=== PATIENT | female | born 1945 | race Caucasian/White ===

== ENCOUNTER → 2019-03-15 | Outpatient (REF) | payer MEDICARE ==
[2019-03-15 14:02] LABS: APPEARANCE, URINE CLEAR (CLEAR); BACTERIA, URINE AUTO 1+ (NEGATIVE); BILIRUBIN, URINE AUTO NEGATIVE (NEGATIVE); BLOOD, URINE BLOOD 1+ (NEGATIVE); COLOR, URINE YELLOW (YELLOW); GLUCOSE, URINE (UA) AUTO NEGATIVE (NEGATIVE); KETONE, URINE AUTO NEGATIVE (NEGATIVE); LEUKOCYTE ESTERASE, URINE AUTO NEGATIVE (NEGATIVE); MUCUS, URINE SMALL (NEGATIVE); NITRITE, URINE AUTO NEGATIVE (NEGATIVE); PROTEIN, URINE AUTO 1+ mg/dL (NEGATIVE); RBC, URINE AUTO 0 /HPF (0-3); SPECIFIC GRAVITY URINE AUTO 1.015 (1.002-1.035); SQUAMOUS EPITHELIAL CELL UR AU 1 /HPF (0-6); UROBILINOGEN, URINE AUTO 0.2 mg/dL (0.0-2.0); WBC, URINE AUTO 0 /HPF (0-3)
== END ==
LOC: M SMT 13:03
PROVIDERS: ATTEND Urology
DX: N28.89 Other specified disorders of kidney and ureter (principal)
CPT/HCPCS: 81001; 87086; G0463

== ENCOUNTER → 2019-04-03 | Outpatient (CLI) | payer MEDICARE ==
[~2019-04-03] MED LIST: ISOVUE-370 76% 100ML VIAL (Q9967) As Ordered ONE
--- NOTE | 2019-04-03 13:24 | REP ---
CT of the abdomen, pelvis not included for evaluation of left renal mass: There are no comparison studies. Multiphasic imaging is performed. Scanning is initially performed without IV contrast. After IV contrast scanning is initially performed during the arterial phase of enhancement and repeated during the portal venous phase and again during the delayed equilibrium phase. There is a mass arising from the upper pole of the left kidney measuring up to 5.4 cm in diameter has a mottled appearance containing zones of enhancement as well as a zones of non enhance. There is no evidence of intraluminal filling defect in the left renal vein by CT. There is no hydronephrosis. There are no renal calculi. There is no perinephric stranding. The left kidney is otherwise unremarkable. The right kidney is unremarkable. There is a right adrenal [address] density of this nodule on the images without IV contrast is 22.3 HU. This measurement higher than expected for a benign adenoma, therefore, left adrenal malignancy is also suspected. The right adrenal is unremarkable. The visualized lung sutherland demonstrate dependent atelectasis but otherwise unremarkable. The hepatic parenchyma is homogeneous. There are surgical clips in the gallbladder fossa. The pancreas and spleen are normal size and unremarkable. The abdominal aorta is unremarkable. There is no periaortic/retroperitoneal lymph node enlargement. The visualized mesentery and bowel are unremarkable. The skeletal structures demonstrate small hyper densities in the T11 and T12 vertebral bodies, nonspecific, bone islands versus blastic metastases. There is advanced degenerative disc disease at the L5 S1 disc space. Impression: Left renal upper pole mass as described. Right adrenal nodule as described. No adenopathy or ascites. Hyper densities in the T11-9 T12 vertebral bodies, nonspecific, bone islands versus blastic metastases. Electronically Signed by Trent Hoff MD 04/03/2019 01:16 P
== END ==
LOC: M RAD 10:11
PROVIDERS: ATTEND Nurse Practitioner Family
DX: N28.89 Other specified disorders of kidney and ureter (principal)
CPT/HCPCS: 74170; Q9967

== ENCOUNTER 2019-04-17 07:30 | Inpatient (IN) | payer MEDICARE ==
[~2019-04-17] VITALS: Ht 180.3 cm; Wt 64.0 kg
[~2019-04-17 07:30] MED LIST changes: +AMLO10TA5 PO; +ASPI81TA85 PO; +B COTAB3 PO; +BISO10TA10 PO; +CLOP75TA2 PO; +D3 S20002 PO; -ISOVUE-370 76% 100ML VIAL (Q9967) As Ordered ONE; +LANTINJ4 SC; +LISI20TA20 PO; +NITR4TASL SL; +NOVOINJ SC; +VENL37.52 PO; +VITA-158 PO
[2019-05-24] MEDS ORDERED: LR 1,000 ML IV ONE (06:00)
[2019-05-24] MEDS ORDERED: BUPIVACAINE HCL 0.25% 30 ML VIAL As Ordered ONE (06:37)
[2019-05-24] MEDS ORDERED: LIDOCAINE 1% SDV INJ 30 ML VIAL As Ordered ONE (06:37)
[2019-05-24] MEDS ORDERED: ceFAZolin 2 GM/D5W 50 ML IV BAG (J0690 PER 500MG) As Ordered ONE (06:57)
[2019-05-24] MEDS ORDERED: PROPOFOL 200 MG/20 ML VIAL As Ordered ONE (07:18)
[2019-05-24] MEDS ORDERED: ROCURONIUM BROMIDE 50 MG/5 ML VIAL As Ordered ONE ×2 (07:18→08:30)
[2019-05-24] MEDS ORDERED: fentaNYL 250 MCG/5 ML INJECTION (J3010) As Ordered ONE (07:18)
[2019-05-24] MEDS ORDERED: LIDOCAINE 2% INJ 100 MG/5 ML SDV (FOR ANES.) As Ordered ONE (07:18)
[2019-05-24] MEDS ORDERED: MIDAZOLAM INJ 2 MG/2 ML VIAL (J2250) As Ordered ONE (07:19)
[2019-05-24] MEDS ORDERED: PERCOCET 5MG/325MG TAB PO PRN ×3 (07:45→13:30)
[2019-05-24] MEDS ORDERED: DEXTROSE 50% 50 ML SYRINGE IV PRN (07:45)
[2019-05-24] MEDS ORDERED: GLUCOSE 4 GM CHEW TABLET PO PRN (07:45)
[2019-05-24] MEDS ORDERED: GLUCAGON FOR INJ 1 MG VIAL (J1610) SC PRN (07:45)
[2019-05-24] MEDS ORDERED: MORPHINE 4 MG/ML 1ML VIAL/SYRINGE (J2270) IV PRN (07:45)
[2019-05-24] MEDS ORDERED: FILTER 1.2 MICRON (ADULT TPN/MANNITOL/REMICADE) XX ONE (08:37)
[2019-05-24] MEDS ORDERED: MANNITOL 25% 12.5 GM/50 ML VIAL (J2150) As Ordered ONE (08:37)
[2019-05-24] MEDS ORDERED: KETOROLAC 60 MG/2 ML VIAL (J1885) As Ordered ONE (09:31)
[2019-05-24] MEDS ORDERED: ONDANSETRON 4MG/2ML VIAL (J2405) As Ordered ONE (09:31)
[2019-05-24] MEDS ORDERED: METOCLOPRAMIDE INJ 10MG/2ML VIAL (J2765) As Ordered ONE (09:31)
[2019-05-24] MEDS ORDERED: dexameTHASONE 4 MG/ML 1ML VIAL (J1100) As Ordered ONE (09:31)
[2019-05-24] MEDS ORDERED: HYDROmorphone HCL 2 MG/ML 1ML VIAL (J1170) As Ordered ONE (09:32)
[2019-05-24] MEDS ORDERED: DESFLURANE 240 ML INHALANT As Ordered ONE (10:10)
[2019-05-24] MEDS: HumaLOG INSULIN (NovoLOG) PER UNIT SC SCH ×3 (12:00→21:00)
[2019-05-24] MEDS ORDERED: ACETAMINOPHEN 1000MG 100ML IV BTL (OFIRMEV) (J0131 PER 10MG) As Ordered ONE (12:46)
[2019-05-24] MEDS ORDERED: SUGAMMADEX SODIUM 500 MG/5 ML VIAL (BRIDION) As Ordered ONE (12:53)
[2019-05-24] MEDS ORDERED: LR 1,000 ML IV SCH (13:30)
[2019-05-24] MEDS ORDERED: ONDANSETRON 4MG/2ML VIAL (J2405) IV PRN (13:30)
[2019-05-24] MEDS ORDERED: METOCLOPRAMIDE INJ 10MG/2ML VIAL (J2765) IV PRN ×2 (13:30→22:00)
[2019-05-24] MEDS ORDERED: MEPERIDINE INJ 25 MG/ML VIAL (J2175) IV PRN (13:30)
[2019-05-24 13:41] LABS: HEMATOCRIT 29.5 % (36.0-47.0); HEMOGLOBIN 9.3 g/dl (12.0-15.5); MEAN CORPUSCULAR HEMOGLOBIN 29.4 pg (27.0-33.0); MEAN CORPUSCULAR HGB CONC 31.5 g/dl (32.0-36.5); MEAN CORPUSCULAR VOLUME 93.4 fl (80.0-96.0); PLATELET COUNT, AUTOMATED 239 10^3/uL (150-450); RED BLOOD COUNT 3.16 10^6/uL (4.00-5.40); WHITE BLOOD COUNT 12.6 10^3/uL (4.0-10.0)
[2019-05-24 14:12] LABS: CALCIUM LEVEL 8.9 MG/DL (8.8-10.2); CREATININE FOR GFR 1.55 MG/DL (0.55-1.30); GLOMERULAR FILTRATION RATE 34.7 (>39); POTASSIUM SERUM 4.2 MEQ/L (3.5-5.1)
--- NOTE | 2019-05-24 14:14 | ROOPDOC ---
[facility] Report Of Operation Report of Operation DATE OF PROCEDURE: 05/24/19 PREPROCEDURE DIAGNOSIS: Left renal neoplasm. POSTPROCEDURE DIAGNOSIS: Left renal neoplasm. PROCEDURE: Left robotic assisted laparoscopic partial nephrectomy with renal exploration and intraoperative ultrasonography for tumor mapping. SURGEON: Dorothea Gonzalez MD TONGSMAN: Hamida Garcia ANESTHESIA: General OPERATIVE INDICATIONS: This is a 73-year-old female who was found to have a 5.5cm enhancing upper pole left renal neoplasm, concerning for malignancy. She was brought to the operating room today for the above treatment. DESCRIPTION OF PROCEDURE: The patient was brought to the operating room where general anesthesia was induced. Prophylactic antibiotics were infused. A Hood catheter was placed into her bladder under sterile conditions. She was then placed in the right lateral decubitus position. All pressure points were appropriately padded and an axillary roll was placed. We then secured the patient to the table with tape. Her abdomen was then prepped and draped in the usual sterile fashion. Next, an 8mm incision was made in line with the 11th rib along the lateral border of the rectus. Pneumoperitoneum was achieved with a Veress needle. Next, an 8mm port was placed for the camera. At this point, the left robotic port was placed off the costal margin. Two right hand robotic ports were then placed with one between the anterior superior iliac spine and the umbilicus and the other one just caudal to the camera port. Last the 12 mm podiatrist assistant port was placed inferior and medial to the camera port. The robot was then docked. We then began our dissection by mobilizing the left colon medially. Any attachment between the spleen and the upper part of Gerota's fascia were released using electrocautery. At this point, we then located the left renal vein and just posterior to the vein was the left renal artery. Once we located the left renal artery, it was carefully dissected in preparation for future clamping. Once that was done, the kidney was then mobilized within Gerota's fascia. I had anesthesia administer 12.5 grams of Mannitol intravenously. On the upper pole of the kidney the tumor was identified. At this point, ultrasound was utilized to demarcate the margins of resection. After identifying the margins, we were then ready to clamp the kidney. At this point, the renal artery was clamped with 2 Bulldog clamps. The tumor was then resected using cold scissors. After completely resecting the tumor, it was placed to the side and we began to perform the renorrhaphy. We started with a #2-0 Vicryl stitch, to close any open vessels or openings in the collecting system. We then used an #0 Vicryl stitch to reapproximate the capsule. The stitches were cinched down using Weck clips. Once done, hemostasis appeared to be excellent. At this point, the clamps were taken off the renal artery and the warm ischemia time was 36 minutes. After taking the clamps off the renal artery, hemostasis still appeared to be excellent. I did administer some Polina over the renorrhaphy. At this point, the tumor was placed in an Endo Catch bag for future retrieval. Next, a Kiran-Carmona drain was advanced in through the lateral right hand robotic port skin site. After that was done, the robot was undocked. The drain was then secured to the skin using a #2-0 Ethilon stitch. The tumor was extracted with an Endo Catch bag through the podiatrist assistant port site after extending the skin. Once the tumor was removed, the fascia of this port site was closed with a running #0 Vicryl suture. Once this was done, I looked back in the abdomen with the camera and there was no bleeding. No intraabdominal contents were caught in the closure of the extraction site. Then all ports were thoroughly irrigated. We then closed the skin of all ports using #4-0 Monocryl subcuticular suture. Local anesthetic was applied. Dermabond was then applied to each incision marking the conclusion of the procedure. The patient then taken out of the right lateral decubitus position, awakened from anesthesia and transported to the recovery room in stable condition. Estimated blood loss: 75 mL. Complications: None. Specimens: Left renal neoplasm. Warm ischemia time: 36 minutes. Percent normal left kidney spared: approximately 80%. Plan: The patient will be admitted to the hospital postoperatively and will be likely discharged home within the next 2 to 3 days. DOROTHEA GONZALEZ MD May 24, 2019 14:14
[2019-05-24] MEDS: amLODIPine 10 MG TAB PO SCH ×2 (14:30→17:30)
[2019-05-24] MEDS: DOCUSATE SODIUM 100 MG CAP PO SCH ×2 (14:30→20:59)
[2019-05-24] MEDS: LISINOPRIL 20 MG TAB PO SCH ×2 (14:30→17:30)
[2019-05-24] MEDS: hydroCHLOROthiazide 25 MG TAB PO SCH ×2 (14:30→17:30)
[2019-05-24 14:38] VITALS: BP 158/65
[2019-05-24 15:05] VITALS: BP 145/63
[2019-05-24] MEDS: NS 1,000 ML IV SCH ×3 (15:10→23:34)
[2019-05-24 16:05] VITALS: BP 186/86
[2019-05-24] MEDS: ceFAZolin SOD 1 GM in D5W MINI-BAG PLUS 50 ML IV SCH ×2 (16:20→23:34)
[2019-05-24] MEDS: ONDANSETRON 4MG/2ML VIAL (J2405) IV PRN (16:20)
[2019-05-24 17:05] VITALS: BP 190/96
[2019-05-24 18:05] VITALS: BP 177/87
[2019-05-24 20:28] VITALS: BP 199/99
[2019-05-24] MEDS: ACETAMINOPHEN TAB 650MG DOSE (2X325MG) PO PRN (22:27)
[2019-05-24] MEDS ORDERED: FUROSEMIDE 20 MG/2 ML VIAL (J1940) IV ONE (23:00)
[2019-05-25] VITALS (7 sets, daily range): BP systolic 167–199; BP diastolic 74–98
[2019-05-25] MEDS: ACETAMINOPHEN TAB 650MG DOSE (2X325MG) PO PRN ×2 (06:09→21:59)
[2019-05-25 06:45] LABS: HEMATOCRIT 28.7 % (36.0-47.0); HEMOGLOBIN 9.2 g/dl (12.0-15.5); MEAN CORPUSCULAR HEMOGLOBIN 29.9 pg (27.0-33.0); MEAN CORPUSCULAR HGB CONC 32.1 g/dl (32.0-36.5); MEAN CORPUSCULAR VOLUME 93.2 fl (80.0-96.0); PLATELET COUNT, AUTOMATED 232 10^3/uL (150-450); RED BLOOD COUNT 3.08 10^6/uL (4.00-5.40)
[2019-05-25 07:06] LABS: CALCIUM LEVEL 8.9 MG/DL (8.8-10.2); CREATININE FOR GFR 1.94 MG/DL (0.55-1.30); GLOMERULAR FILTRATION RATE 26.8 (>39); POTASSIUM SERUM 3.8 MEQ/L (3.5-5.1)
--- NOTE | 2019-05-25 07:39 | IPNPDOC ---
Subjective Review oF Systems Chief Complaint The patient is a 73-year-old female admitted with a reason for visit of Renal Mass Left Upper Pole. Events since Last Encounter No acute events o/n. Pain controlled so far w/ tylenol. Patient had a lot of nausea yesterday, but this is improved this morning. No emesis. Tolerating cl ears. No f/c/ns. Objective Physical Examination General Exam: Alert, Cooperative, No Acute Distress ABDOMEN EXAM: Soft, Tenderness (mild), Other (incisions clean/dry/intact; JAYJAY draining serosanguinous fluid) Skin Exam: Nl turgor and temperature Neuro Exam: Normal Speech Psych Exam: Mental status NL, Mood NL Other physical findings catheter draining clear urine Vital Signs/I&O Vital Signs Date Time Temp Pulse Resp B/P (MAP) Pulse Ox O2 Delivery O2 Flow Rate FiO2 05/25/19 06:16 97.6 90 22 187/86 (119) 98 2.0 I&O- Last 24 Hours up to 6 AM 05/25/19 06:00 Intake Total 2795 ml Output Total 1385 ml Balance 1410 ml Laboratory Data Labs 24H Laboratory Tests 2 05/24/19 13:12: Nucleated Red Blood Cells % (auto) 0.0, Anion Gap 9, Glomerular Filtration Rate 34.7L, Blood Urea Nitrogen 22H, Creatinine 1.55H, Sodium Level 140, Potassium Level 4.2, Chloride Level 106, Carbon Dioxide Level 25, Calcium Level 8.9 05/24/19 13:47: Bedside Glucose (Misc Panel) 207H 05/24/19 16:17: Bedside Glucose (Misc Panel) 216H 05/24/19 21:14: Bedside Glucose (Misc Panel) 184H 05/25/19 06:12: Nucleated Red Blood Cells % (auto) 0.0, Anion Gap 7L, Glomerular Filtration Rate 26.8L, Blood Urea Nitrogen 28H, Creatinine 1.94H, Sodium Level 140, Potassium Level 3.8, Chloride Level 107, Carbon Dioxide Level 26, Calcium Level 8.9 CBC/BMP Laboratory Tests 05/24/19 13:12 Red Blood Count 3.16 L, Mean Corpuscular Volume 93.4, Mean Corpuscular Hemoglobin 29.4, Mean Corpuscular Hemoglobin Concent 31.5 L, Red Cell Distribution Width 14.6 H, Calcium Level 8.9 05/25/19 06:12 Red Blood Count 3.08 L, Mean Corpuscular Volume 93.2, Mean Corpuscular Hemoglobin 29.9, Mean Corpuscular Hemoglobin Concent 32.1, Red Cell Distribution Width 14.6 H, Calcium Level 8.9 FSBS Laboratory Tests Test 05/24/19 13:47 05/24/19 16:17 05/24/19 21:14 Range/Units Bedside Glucose (Misc Panel) 207 216 184 83-110 MG/DL Assessment/Plan Date Seen The patient was seen on 05/25/19. Patient Summary This is a 73 y/o F POD1 s/p left robotic partial nephrectomy. She is doing well. Hb is stable. Cr trended up to 1.9 this morning from 1.6 postop. Her UOP has been very good. Plan/VTE VTE Prophylaxis Ordered?: Yes VTE Exclusion Mechanical Proph: N/A:VTE Prophy Ordered Plan/Urinary Catheter Urinary Catheter: D/C Hood Plan - d/c Hood - decrease IVF - ultram prn pain - zofran/reglan prn nausea - cont home meds - SSI - strict I/Os - SCDs when in bed - ambulate - incentive spirometry - CLD -> advance as tolerated DOROTHEA GONZALEZ MD May 25, 2019 07:39
[2019-05-25] MEDS: HumaLOG INSULIN (NovoLOG) PER UNIT SC SCH ×4 (08:16→21:00)
[2019-05-25] MEDS: ASPIRIN 81 MG ENTERIC TAB PO SCH (08:16)
[2019-05-25] MEDS: BISOPROLOL FUMARATE 10 MG TAB PO SCH (08:17)
[2019-05-25] MEDS: amLODIPine 10 MG TAB PO SCH (08:17)
[2019-05-25] MEDS: LISINOPRIL 20 MG TAB PO SCH (08:17)
[2019-05-25] MEDS: hydroCHLOROthiazide 25 MG TAB PO SCH (08:17)
[2019-05-25] MEDS: traMADol 50 MG TAB PO PRN ×2 (08:18→17:20)
[2019-05-25] MEDS: DOCUSATE SODIUM 100 MG CAP PO SCH ×2 (08:18→21:59)
[2019-05-25] MEDS: NS 1,000 ML IV SCH (08:19)
[2019-05-25] MEDS ORDERED: ONDA4TAB5 PO (17:05)
[2019-05-25] MEDS ORDERED: TRAM50TA2 PO (17:05)
[2019-05-25] MEDS ORDERED: COLA100C5 PO (17:05)
[2019-05-25] MEDS: ONDANSETRON 4MG/2ML VIAL (J2405) IV PRN (17:20)
[2019-05-25] MEDS: VENLAFAXINE **XR** 37.5 MG CAPSULE PO SCH (21:59)
[2019-05-26 06:59] VITALS: BP 154/72
[2019-05-26] MEDS: DOCUSATE SODIUM 100 MG CAP PO SCH ×2 (08:33→20:58)
[2019-05-26] MEDS: ASPIRIN 81 MG ENTERIC TAB PO SCH (08:33)
[2019-05-26] MEDS: amLODIPine 10 MG TAB PO SCH (08:33)
[2019-05-26] MEDS: LISINOPRIL 20 MG TAB PO SCH (08:34)
[2019-05-26] MEDS: hydroCHLOROthiazide 25 MG TAB PO SCH (08:34)
[2019-05-26] MEDS: BISOPROLOL FUMARATE 10 MG TAB PO SCH (08:34)
[2019-05-26] MEDS: traMADol 50 MG TAB PO PRN ×4 (08:36→20:59)
[2019-05-26] MEDS: HumaLOG INSULIN (NovoLOG) PER UNIT SC SCH ×4 (08:39→20:57)
--- NOTE | 2019-05-26 10:01 | IPNPDOC ---
Date Seen The patient was seen on 05/26/19. Progress Note SUBJECTIVE: patient c/o left shoulder pain. Denies SOB, chest pain. Nursing reporting low o2 sat when OOB OBJECTIVE PHYSICAL EXAMINATION: VITAL SIGNS: Please see below. GENERAL: lying comfortable in bed RESPIRATORY: decreased BS bilaterally ABDOMINAL: soft mildly distended. wounds clean and dry. JAYJAY 50 cc EXTREMITIES: no calf swelling, neg Lauren's sign O2 sat in bed 95% on 1.5 L O2 LABORATORY DATA, IMAGING STUDIES, MICROBIOLOGY: Please see below. Labs pending, unable to draw blood this AM ASSESSMENT AND PLAN: POD #2 s/p partial nephrectomy. Patient with decreased o2 sat when OOB. Likely secondary to atelectesis. Must consider PE, however unable to perform CT chest with contrast due to elevated creatinine. Will check CXR and venous Doppler to r/o DVT. Encourage incentive spirometry. Monitor BUN/Creatinine. VS, I&O, 24H, Fishbone Vital Signs/I&O Vital Signs Date Time Temp Pulse Resp B/P (MAP) Pulse Ox O2 Delivery O2 Flow Rate FiO2 05/26/19 09:21 92 1.5 05/26/19 08:42 97.6 83 20 154/72 I&O- Last 24 Hours up to 6 AM 05/26/19 05:59 Intake Total 870 ml Output Total 1800 ml Balance -930 ml Laboratory Data 24H LABS Laboratory Tests 2 05/25/19 11:24: Bedside Glucose (Misc Panel) 166H 05/25/19 16:50: Bedside Glucose (Misc Panel) 160H 05/25/19 21:19: Bedside Glucose (Misc Panel) 176H 05/26/19 08:05: Bedside Glucose (Misc Panel) 178H Jaiden Mendoza MD May 26, 2019 10:01
[2019-05-26 10:33] LABS: CALCIUM LEVEL 8.5 MG/DL (8.8-10.2); CREATININE FOR GFR 2.06 MG/DL (0.55-1.30); POTASSIUM SERUM 3.8 MEQ/L (3.5-5.1)
[2019-05-26 10:41] LABS: HEMATOCRIT 26.7 % (36.0-47.0); HEMOGLOBIN 8.7 g/dl (12.0-15.5); MEAN CORPUSCULAR HEMOGLOBIN 30.5 pg (27.0-33.0); MEAN CORPUSCULAR HGB CONC 32.6 g/dl (32.0-36.5); MEAN CORPUSCULAR VOLUME 93.7 fl (80.0-96.0); PLATELET COUNT, AUTOMATED 207 10^3/uL (150-450); RED BLOOD COUNT 2.85 10^6/uL (4.00-5.40)
--- NOTE | 2019-05-26 10:44 | REP ---
Clinical: Hypoxia. Technique: AP and cross-table lateral. Findings: The cardiac silhouette is upper limits of normal. Loop recorder identified. Bibasilar atelectasis and possible small layering effusion cannot be excluded. No pneumothorax. Skeletal structures demonstrate age-related changes. Impression: Cannot exclude bibasilar atelectasis or small layering effusion. Electronically Signed by Tawanda Lin MD 05/26/2019 10:35 A
--- NOTE | 2019-05-26 11:13 | REP ---
Clinical: Bilateral lower extremity pain and swelling . Technique: Ibarra scale and color Doppler evaluation using linear high frequency transducer. Findings: Ultrasound examination of the right and left lower extremity deep venous structures from the common femoral vein to the popliteal vein demonstrates normal compressibility flow and wave patterns in response to respiration and augmentation. There is no evidence for deep venous thrombosis. Impression: No evidence for deep venous thrombosis bilateral lower extremities . Electronically Signed by Tawanda Lin MD 05/26/2019 11:04 A
[2019-05-26] MEDS: VENLAFAXINE **XR** 37.5 MG CAPSULE PO SCH (20:58)
[2019-05-26 22:00] VITALS: BP 157/70
[2019-05-27 06:00] VITALS: BP 161/70
[2019-05-27 07:23] LABS: HEMOGLOBIN 8.2 g/dl (12.0-15.5); MEAN CORPUSCULAR HEMOGLOBIN 29.9 pg (27.0-33.0); MEAN CORPUSCULAR HGB CONC 32.8 g/dl (32.0-36.5); MEAN CORPUSCULAR VOLUME 91.2 fl (80.0-96.0); PLATELET COUNT, AUTOMATED 178 10^3/uL (150-450); RED BLOOD COUNT 2.74 10^6/uL (4.00-5.40)
[2019-05-27 07:38] LABS: CALCIUM LEVEL 8.7 MG/DL (8.8-10.2); CREATININE FOR GFR 2.09 MG/DL (0.55-1.30); GLOMERULAR FILTRATION RATE 24.6 (>39); POTASSIUM SERUM 3.8 MEQ/L (3.5-5.1)
[2019-05-27] MEDS: BISOPROLOL FUMARATE 10 MG TAB PO SCH (08:20)
[2019-05-27] MEDS: ASPIRIN 81 MG ENTERIC TAB PO SCH (08:20)
[2019-05-27] MEDS: amLODIPine 10 MG TAB PO SCH (08:21)
[2019-05-27] MEDS: hydroCHLOROthiazide 25 MG TAB PO SCH (08:21)
[2019-05-27] MEDS: DOCUSATE SODIUM 100 MG CAP PO SCH ×2 (08:21→21:26)
[2019-05-27] MEDS: LISINOPRIL 20 MG TAB PO SCH (08:21)
[2019-05-27] MEDS: HumaLOG INSULIN (NovoLOG) PER UNIT SC SCH ×4 (08:22→21:00)
--- NOTE | 2019-05-27 09:31 | IPNPDOC ---
Date Seen The patient was seen on 05/27/19. Progress Note SUBJECTIVE: Patient c/o mild abdominal pain, passing gas, denies BM. Shoulder pain resolved this AM. Denies SOB or chest pain. OBJECTIVE PHYSICAL EXAMINATION: VITAL SIGNS: Please see below. Awake and alert, NAD Abd: soft, distended, diffusely tender. Incisions clean and dry. JAYJAY output minimal LABORATORY DATA, IMAGING STUDIES, MICROBIOLOGY: Please see below. CXR c/w atelectesis Venous dopplers negative for DVT HB 8.2 (Down from 8.6) Creatinine stable 2.09 ASSESSMENT AND PLAN: Patient with post op atelectesis and mild ileus. Post op anemia secondary to blood loss. Encourage incentive spirometry and ambulation. Observe HB/HCT. Creatinine stable. DISPOSITION: Possible discharge Tuesday or Tuesday VS, I&O, 24H, [facility] Vital Signs/I&O Vital Signs Date Time Temp Pulse Resp B/P (MAP) Pulse Ox O2 Delivery O2 Flow Rate FiO2 05/27/19 06:00 98.3 74 18 161/70 (100) 94 1.5 I&O- Last 24 Hours up to 6 AM 05/27/19 06:00 Intake Total 2200 ml Output Total 1070 ml Balance 1130 ml Laboratory Data 24H LABS Laboratory Tests 2 05/26/19 09:57: Nucleated Red Blood Cells % (auto) 0.0, Anion Gap 7L, Glomerular Filtration Rate 25.0L, Blood Urea Nitrogen 30H, Creatinine 2.06H, Sodium Level 139, Potassium Level 3.8, Chloride Level 105, Carbon Dioxide Level 27, Calcium Level 8.5L 05/26/19 11:18: Bedside Glucose (Misc Panel) 161H 05/26/19 17:09: Bedside Glucose (Misc Panel) 160H 05/26/19 19:58: Bedside Glucose (Misc Panel) 144H 05/27/19 07:02: Nucleated Red Blood Cells % (auto) 0.0, Anion Gap 9, Glomerular Filtration Rate 24.6L, Blood Urea Nitrogen 35H, Creatinine 2.09H, Sodium Level 138, Potassium Level 3.8, Chloride Level 103, Carbon Dioxide Level 26, Calcium Level 8.7L CBC/BMP Laboratory Tests 05/26/19 09:57 Red Blood Count 2.85 L, Mean Corpuscular Volume 93.7, Mean Corpuscular Hemoglobin 30.5, Mean Corpuscular Hemoglobin Concent 32.6, Red Cell Distribution Width 14.8 H, Calcium Level 8.5 L 05/27/19 07:02 Red Blood Count 2.74 L, Mean Corpuscular Volume 91.2, Mean Corpuscular Hemoglobin 29.9, Mean Corpuscular Hemoglobin Concent 32.8, Red Cell Distribution Width 14.7 H, Calcium Level 8.7 L Jaiden Mendoza MD May 27, 2019 09:30
[2019-05-27] MEDS: traMADol 50 MG TAB PO PRN ×2 (17:03→22:59)
[2019-05-27] MEDS: VENLAFAXINE **XR** 37.5 MG CAPSULE PO SCH (21:26)
[2019-05-27 22:00] VITALS: BP 148/65
[2019-05-28 06:00] VITALS: BP 151/66
[2019-05-28 06:22] LABS: HEMATOCRIT 26.5 % (36.0-47.0); HEMOGLOBIN 8.5 g/dl (12.0-15.5); MEAN CORPUSCULAR HEMOGLOBIN 29.9 pg (27.0-33.0); MEAN CORPUSCULAR HGB CONC 32.1 g/dl (32.0-36.5); MEAN CORPUSCULAR VOLUME 93.3 fl (80.0-96.0); PLATELET COUNT, AUTOMATED 187 10^3/uL (150-450); RED BLOOD COUNT 2.84 10^6/uL (4.00-5.40); WHITE BLOOD COUNT 12.6 10^3/uL (4.0-10.0)
[2019-05-28] MEDS: traMADol 50 MG TAB PO PRN ×2 (06:37→22:54)
[2019-05-28 06:51] LABS: CALCIUM LEVEL 9.3 MG/DL (8.8-10.2); CREATININE FOR GFR 2.12 MG/DL (0.55-1.30); GLOMERULAR FILTRATION RATE 24.2 (>39); POTASSIUM SERUM 3.5 MEQ/L (3.5-5.1)
--- NOTE | 2019-05-28 08:19 | IPNPDOC ---
Subjective Review oF Systems Chief Complaint The patient is a 73-year-old female admitted with a reason for visit of Renal Mass Left Upper Pole. Events since Last Encounter No acute events o/n. Good pain control w/ ultram. No n/v. Still having trouble weaning her off O2. Denies SOB or chest pain. No f/c/ns. Objective Physical Examination General Exam: Alert, Cooperative, No Acute Distress ABDOMEN EXAM: Soft, Tenderness (mild), Other (incisions clean/dry/intact; JAYJAY draining serous fluid) Skin Exam: Nl turgor and temperature Neuro Exam: Normal Speech Psych Exam: Mental status NL, Mood NL Vital Signs/I&O Vital Signs Date Time Temp Pulse Resp B/P (MAP) Pulse Ox O2 Delivery O2 Flow Rate FiO2 05/28/19 07:07 20 2.5 05/28/19 06:00 97.6 76 151/66 (94) 95 I&O- Last 24 Hours up to 6 AM 05/28/19 06:00 Intake Total 770 ml Output Total 595 ml Balance 175 ml Laboratory Data Labs 24H Laboratory Tests 2 05/27/19 11:46: Bedside Glucose (Misc Panel) 133H 05/27/19 17:00: Bedside Glucose (Misc Panel) 175H 05/27/19 21:07: Bedside Glucose (Misc Panel) 114H 05/28/19 06:13: Nucleated Red Blood Cells % (auto) 0.0, Anion Gap 11, Glomerular Filtration Rate 24.2L, Blood Urea Nitrogen 39H, Creatinine 2.12H, Sodium Level 137, Potassium Level 3.5, Chloride Level 101, Carbon Dioxide Level 25, Calcium Level 9.3 CBC/BMP Laboratory Tests 05/28/19 06:13 Red Blood Count 2.84 L, Mean Corpuscular Volume 93.3, Mean Corpuscular Hemoglobin 29.9, Mean Corpuscular Hemoglobin Concent 32.1, Red Cell Distribution Width 14.5, Calcium Level 9.3 FSBS Laboratory Tests Test 05/27/19 11:46 05/27/19 17:00 05/27/19 21:07 Range/Units Bedside Glucose (Misc Panel) 133 175 114 83-110 MG/DL Assessment/Plan Date Seen The patient was seen on 05/28/19. Patient Summary This is a 73 y/o F POD4 s/p left robotic partial nephrectomy. She was not discharged over the weekend due to continued difficulty weaning her off O2. A CXR was done which was notable for atelectasis. LE dopplers were negative for DVT. She denies chest pain or SOB. Per nursing she has not been using incentive spirometry consistently. It appears that the difficulty is w/ taking deep breaths. Hb is stable. Cr stable at 2. UOP has been good. Plan/VTE VTE Prophylaxis Ordered?: Yes VTE Exclusion Mechanical Proph: N/A:VTE Prophy Ordered Plan - will continue to try to wean O2 - encourage incentive spirometry - cont home meds - strict I/Os - ultram prn pain - d/c JAYJAY drain - SCDs when in bed - ambulate - possible discharge home today DOROTHEA GONZALEZ MD May 28, 2019 08:19
[2019-05-28] MEDS: HumaLOG INSULIN (NovoLOG) PER UNIT SC SCH ×4 (08:27→20:49)
[2019-05-28] MEDS: amLODIPine 10 MG TAB PO SCH (08:28)
[2019-05-28] MEDS: LISINOPRIL 20 MG TAB PO SCH (08:28)
[2019-05-28] MEDS: hydroCHLOROthiazide 25 MG TAB PO SCH (08:28)
[2019-05-28] MEDS: ASPIRIN 81 MG ENTERIC TAB PO SCH (08:28)
[2019-05-28] MEDS: BISOPROLOL FUMARATE 10 MG TAB PO SCH (08:28)
[2019-05-28] MEDS: DOCUSATE SODIUM 100 MG CAP PO SCH ×2 (08:29→20:47)
--- NOTE | 2019-05-28 13:10 | CR.PDOC ---
General Date of Consultation: May 28, 2019 Referring Provider: DOROTHEA GONZALEZ MD Attending Physician: BERNARDINO MCFADDEN MD Consultation REASON FOR CONSULTATION/CHIEF COMPLAINT: Unable to wean off oxygen ,hypoxia on room air. HISTORY OF PRESENT ILLNESS: 72 years old white female with past medical history of diabetes mellitus type 2, hypertension, CAD status post cardiac stent 1. Hyperlipidemia, had a partial nephrectomy done at [facility] for possible malignancy. Postop patient has been found hypoxic on ambulation and unable to wean off her oxygen. Patient has no history of COPD, smoking, asthma or any other lung problems. Patient denies any complaints of chest pain, dyspnea on exertion, orthopnea, etc.. ALLERGIES: Please see below. HOME MEDICATIONS: Please see below. PAST MEDICAL HISTORY: , Diabetes mellitus type 2, hypertension, hyperlipidemia, coronary artery disease status post cardiac stent placed loop recorder PAST SURGICAL HISTORY: Bilateral cataract surgeries, ovarian cyst removal, uterine fibroid removal, appendectomy, cholecystectomy, and total hysterectomy FAMILY HISTORY: Father: None Mother: None Siblings: None Children: None Hereditary Diseases: None Unexpected deaths due to medical reasons: None SOCIAL HISTORY: Marital status and/or living arrangements: Lives alone Children: One of her daughter takes care of her at home and she is involved in her care Employment: Retired Tobacco use:Never smoked ETOH: None Illicit drug use: None IV drug use: None Other relevant social factors: None REVIEW OF SYSTEMS: CONSTITUTIONAL: , No chills, fever. HEENT: , No eye pain, ear pain or nose abnormality. CARDIOVASCULAR: . No chest pain or palpitations. RESPIRATORY: , No shortness of breath, cough. GENITOURINARY: Or dysuria, frequency. MUSCULOSKELETAL: , No aches and pains. . GASTROINTESTINAL: , No nausea, vomiting. SKIN: No rash. NEUROLOGICAL: , No headache, dizziness. PSYCHIATRIC: No anxiety, depression. ENDOCRINE: History of diabetes. HEMATOLOGIC/LYMPHATIC: History of anemia. ALLERGIC/IMMUNOLOGIC: No complaints. PHYSICAL EXAMINATION: VITAL SIGNS: Please see below. GENERAL APPEARANCE: , Alert, oriented 3, no apparent distress. HEENT: PERRLA. Extraocular muscles intact. RESPIRATORY: Clear to A&P. No rales, rhonchi, wheezing. CARDIOVASCULAR: S1, S2, regular, no murmurs, thrills or heaves. ABDOMEN: , Soft, nontender, bowel sounds present. EXTREMITIES: No clubbing, cyanosis, edema. NEUROLOGICAL: . No focal motor sensory deficit. PSYCHIATRIC: No anxiety, depression. LABORATORY DATA: Please see below. ASSESSMENT/PLAN: #1. 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 History of anemia Chest x-ray was done which was essentially showed bibasilar atelectasis and small layering effusion, but we will repeat a chest x-ray with PA and lateral view. Pulmonary embolus needs to be ruled out as patient is postop and hypoxic without any previous pulmonary history. We will request a VQ scan, even though venous Doppler bilateral of lower extremity did not show any DVT. Also will request echocardiogram as patient is a history of CAD with a recent MA about a year ago and had a cardiac stent placed in Oxygen support Incentive spirometry Holding lisinopril and hydrochlorothiazide secondary to worsening creatinine. Renal function Nephrology consult with Dr. Medina has been requested. Further, as per nephrology recommendation Continue all other home meds Repeat labs in a.m. and monitor H&H and renal functions closely Further management as per pending workup Thank you for calling this consults Dr. Gonzalez and will gladly follow patient with you Vital Signs/I&O Vital Signs Date Time Temp Pulse Resp B/P (MAP) Pulse Ox O2 Delivery O2 Flow Rate FiO2 05/28/19 11:49 79 05/28/19 09:45 0.5 05/28/19 08:28 151/66 05/28/19 08:28 76 05/28/19 07:07 20 05/28/19 06:00 97.6 I&O- Last 24 Hours up to 6 AM 05/28/19 06:00 Intake Total 770 ml Output Total 595 ml Balance 175 ml Laboratory Data Labs 24H Laboratory Tests 2 05/27/19 17:00: Bedside Glucose (Misc Panel) 175H 05/27/19 21:07: Bedside Glucose (Misc Panel) 114H 05/28/19 06:13: Nucleated Red Blood Cells % (auto) 0.0, Anion Gap 11, Glomerular Filtration Rate 24.2L, Blood Urea Nitrogen 39H, Creatinine 2.12H, Sodium Level 137, Potassium Level 3.5, Chloride Level 101, Carbon Dioxide Level 25, Calcium Level 9.3 CBC/BMP Laboratory Tests 05/28/19 06:13 Red Blood Count 2.84 L, Mean Corpuscular Volume 93.3, Mean Corpuscular Hemoglobin 29.9, Mean Corpuscular Hemoglobin Concent 32.1, Red Cell Distribution Width 14.5, Calcium Level 9.3 Allergies Coded Allergies: nifedipine (Verified Allergy, Severe, rash,leg swelling and weakness, 05/24/19) atorvastatin (Verified Allergy, Intermediate, rash, 05/24/19) rosuvastatin (Verified Allergy, Intermediate, leg cramps, 05/24/19) fentanyl (Verified Adverse Reaction, Intermediate, "FEELS ILL" "PEES ALL OVER", 05/24/19) glipizide (Verified Adverse Reaction, Intermediate, vision changes/glaucoma, 05/24/19) alirocumab (Verified Adverse Reaction, Mild, DID NOT WORK, 05/24/19) diazepam (Verified Adverse Reaction, Mild, vomiting, 05/24/19) hydromorphone (Verified Adverse Reaction, Mild, nausea and vomiting,dizziness, 05/24/19) metformin (Verified Adverse Reaction, Mild, diarrhea, 05/24/19) Home Medications Scheduled Amlodipine Besylate (Amlodipine Besylate) 10 Mg Tablet, 10 MG PO DAILY for 30 Days, #30 (Reported) Ascorbic Acid (Vitamin C) 500 Mg Tablet, 500 MG PO DAILY for 30 Days, #30 (Reported) Aspirin (Aspir 81) 81 Mg Tablet.dr, 81 MG PO DAILY for pain for 30 Days, #30 (Reported) Bisoprolol Fumarate (Bisoprolol Fumarate) 10 Mg Tablet, 10 MG PO DAILY for 30 Days, #30 (Reported) Cholecalciferol (Vitamin D3) (Vitamin D3) 2,000 Unit Capsule, 1 CAP PO DAILY for 30 Days, #30 (Reported) Clopidogrel Bisulfate (Clopidogrel) 75 Mg Tablet, 75 MG PO DAILY for 30 Days, #30 (Reported) Docusate Sodium (Colace) 100 Mg Capsule, 100 MG PO BID for 10 Days, #20 Insulin Aspart (Novolog) 100 Unit/1 Ml Cartridge, 10 UNITS SC TID, (Reported) Insulin Glargine,Hum.rec.anlog (Lantus Solostar) 100 Unit/1 Ml Insuln.pen, 40 UNIT SC QPM for 30 Days, #5 (Reported) Lisinopril/Hydrochlorothiazide (Lisinopril-Hctz 20-25 mg Tab) 1 Each Tablet, 1 TAB PO DAILY for 30 Days, #30 (Reported) Nitroglycerin (Nitrostat) 0.4 Mg Tab.subl, 0.4 MG SL ASDIRECTED for chest pain, #100 (Reported) 1st sign of attack; may repeat every 5 mins; if pain persists after 3 in 15 min, medical attention is recommended Venlafaxine HCl (Venlafaxine HCl ER) 37.5 Mg Cap.er.24h, 37.5 MG PO BID, (Reported) Vitamin B Complex (Vitamin B Complex) 1 Each Tablet, 1 TAB PO DAILY for 30 Days, #30 (Reported) Scheduled PRN Ondansetron HCl (Ondansetron HCl) 4 Mg Tablet, 4 MG PO Q6HP PRN for nausea/vomiting, #20 Tramadol HCl (Tramadol HCl) 50 Mg Tablet, 50 MG PO Q6HP PRN for MODERATE/SEVERE PAIN (PS 5-10), #20 BERNARDINO MCFADDEN MD May 28, 2019 13:10
[2019-05-28 14:00] VITALS: BP 151/64
[2019-05-28] MEDS: VENLAFAXINE **XR** 37.5 MG CAPSULE PO SCH (20:47)
--- NOTE | 2019-05-28 21:02 | ECHO ---
DATE OF PROCEDURE: 05/28/2019 REFERRING PHYSICIAN: Dr. Sommer INDICATION: Dyspnea. Height 180 cm, weight 64 kg. DIMENSIONS: IVS: 1.2 LV: 3.4 LVPW: 1.2 LA: 3.5 Aorta: 3.0 IVC: 1.4 Mitral E wave velocity: 126 A wave: 120 E prime septal: 4.1 E prime lateral: 5.6 FINDINGS: The study is of acceptable technical quality. The patient is in sinus rhythm. Left ventricle is normal size and systolic function with estimated left ventricular ejection fraction (LVEF) 65-70%. Mild left ventricular hypertrophy (LVH) is present. No segmental wall motion abnormalities are appreciated. Right ventricle is normal size and systolic function. Both atria appear grossly normal. Aortic valve is mildly sclerotic but has three cusps and normal mobility. Mitral, tricuspid and pulmonic valves appear normal. No pericardial effusion is noted. Inferior vena cava is normal size and appropriately collapses with respiration indicative of normal central venous pressure. Aortic root, aortic arch and visualized segment of abdominal aorta all appear normal. Doppler interrogation of aortic valve reveals no stenosis and mild insufficiency. There is no significant mitral stenosis or insufficiency. There is trace tricuspid insufficiency. Calculated pulmonary artery pressure is in upper limits of normal values. Pulmonic valve is functionally competent. Mitral inflow pattern and tissue Doppler imaging of mitral annulus revealed grade 2 diastolic dysfunction. CONCLUSIONS: 1. Study is of acceptable technical quality. 2. Normal LV size with mild LVH and preserved LV systolic function. Grade 2 diastolic dysfunction. 3. No hemodynamically significant valvular disease. 4. Normal central venous pressure and likely normal pulmonary artery pressure. COMMENT: Subacute bacterial endocarditis (SBE) prophylaxis is not recommended.
[2019-05-28 22:00] VITALS: BP 155/66
[2019-05-29 06:00] VITALS: BP 165/74
[2019-05-29 06:43] LABS: HEMATOCRIT 24.7 % (36.0-47.0); HEMOGLOBIN 8.1 g/dl (12.0-15.5); MEAN CORPUSCULAR HEMOGLOBIN 29.6 pg (27.0-33.0); MEAN CORPUSCULAR HGB CONC 32.8 g/dl (32.0-36.5); MEAN CORPUSCULAR VOLUME 90.1 fl (80.0-96.0); PLATELET COUNT, AUTOMATED 224 10^3/uL (150-450); RED BLOOD COUNT 2.74 10^6/uL (4.00-5.40); WHITE BLOOD COUNT 11.4 10^3/uL (4.0-10.0)
[2019-05-29 07:02] LABS: CALCIUM LEVEL 9.4 MG/DL (8.8-10.2); CREATININE FOR GFR 2.12 MG/DL (0.55-1.30); GLOMERULAR FILTRATION RATE 24.2 (>39); POTASSIUM SERUM 3.3 MEQ/L (3.5-5.1)
[2019-05-29] MEDS: traMADol 50 MG TAB PO PRN (07:13)
[2019-05-29] MEDS: BISOPROLOL FUMARATE 10 MG TAB PO SCH (09:33)
[2019-05-29] MEDS: DOCUSATE SODIUM 100 MG CAP PO SCH ×2 (09:33→20:42)
[2019-05-29] MEDS: POTASSIUM CHLORIDE 10 MEQ SR TABLET PO SCH (09:33)
[2019-05-29] MEDS: HumaLOG INSULIN (NovoLOG) PER UNIT SC SCH ×4 (09:33→20:45)
[2019-05-29 09:34] VITALS: BP 165/74
[2019-05-29] MEDS: ASPIRIN 81 MG ENTERIC TAB PO SCH (09:34)
[2019-05-29] MEDS: amLODIPine 10 MG TAB PO SCH (09:34)
[2019-05-29] MEDS ORDERED: MOM 30ML SUSPENSION UDC PO PRN (09:45)
--- NOTE | 2019-05-29 10:02 | REP ---
VENTILATION-PERFUSION LUNG SCAN: HISTORY: Rule out pulmonary embolus. Comparison chest x-ray May 26, 2019. The radiograph shows increased density in the left lower lobe suggestive of left lower lobe infiltrate or pneumonia. TECHNIQUE: 1.0 mCi technetium 99m DTPA aerosol is utilized for the ventilation study and is followed by a 5.5 mCi dose of intravenous technetium 99m MAA for the perfusion examination. A sequence of eight planar images are acquired for both portions of the exam. SCINTIGRAPHIC FINDINGS: Ventilation study shows relatively homogeneous uptake. There is some tracheobronchial deposition visible on the ventilation exam. There is a ventilation defect in the left lower lobe posteriorly. The perfusion study shows fairly homogeneous uptake except for a defect in the left lower lobe matching the ventilation uptake. IMPRESSION: Matched ventilation-perfusion defect in the left lower lobe where radiograph shows increased density. Low probability scan for pulmonary embolus. Electronically Signed by Holger Chairez MD 05/29/2019 01:01 P
--- NOTE | 2019-05-29 10:44 | REP ---
CHEST X-RAY: TWO VIEWS. HISTORY: Dyspnea. COMPARISON CHEST X-RAY: May 26, 2019 FINDINGS: There is increased density and platelike atelectasis again noted in the left lower lobe posteriorly. This is somewhat improved from the 05/26/2019 study. Infiltrate and atelectasis suspected. The pleural angles also appear somewhat blunted and there may be a small left effusion. A loop recorder is seen in the left precordial soft tissues. Lungs are otherwise clear. Heart size is normal. There is coronary artery stent material visible on the lateral film over the heart. IMPRESSION: Improving infiltrate and atelectasis left lower lobe. Possible small left effusion. Coronary artery stent and loop recorder visualized. Electronically Signed by Holger Chairez MD 05/29/2019 01:02 P
[2019-05-29] MEDS ORDERED: SPIRONOLACTONE 50 MG TAB PO ONE (10:45)
[2019-05-29] MEDS ORDERED: FUROSEMIDE 40 MG/4 ML VIAL (J1940) IV ONE (10:45)
--- NOTE | 2019-05-29 11:27 | IPNPDOC ---
Subjective Date Seen The patient was seen on 05/29/19. Subjective Chief Complaint/HPI Patient is only on half liter oxygen on rest, but she desats when she ambulates as per nursing . Kisha offers no complaints of chest pain or shortness of breath at the present time General: Denies: ROS Unobtainable, Chills, Night Sweats, Fatigue, Malaise, Normal Appetite, Other Symptoms Constitutional: Denies: Chills, Fever, Malaise, Night Sweats, Weakness, Fatigue, Weight Loss, Lethargy, Other Eyes: Denies: Pain, Vision change, Conjunctivae inflammation, Eyelid inflammati on, Redness, Other ENT: Denies: Head Aches, Ear Pain, Dysphagia, Sinus Congestion, Post Nasal Drip, Sore Throat, Epistaxis, Other Symptoms Skin: Denies: Rash, Lesions, Jaundice, Bruising, Itching, Dry, Breakdown, Nail Changes, Other Pulmonary: Denies: Dyspnea, Cough, Pleuritic Chest Pain, Other Symptoms Cardiovascular: Denies: Chest Pain, Palpitations, Orthopnea, Paroxysmal Noc. Dyspnea, Edema, Lt Headedness, Other Symptoms Gastrointestinal: Denies: Nausea, Vomiting, Abdominal Pain, Diarrhea, Constipation, Melena, Hematochezia, Other Symptoms Musculoskeletal: Denies: Neck Pain, Back Pain, Shoulder Pain, Arm Pain, Hand Pain, Leg Pain, Foot Pain, Joint Pain, Muscle Pain, Spasms, Other Symptoms Neurological: Denies: Weakness, Numbness, Incoordination, Change in speech, Confusion, Seizures, Other Symptoms Objective Physical Examination Eye Exam: Positive: PERRLA, Conjunctiva & lids normal ENT Exam: Positive: Mucous membr. moist/pink Neck Exam: Positive: Supple Chest Exam: Positive: Clear to auscultation, Normal air movement Heart Exam: Positive: Rate Normal, Normal S1, Normal S2 Abdomen Exam: Positive: Normal bowel sounds, Soft Skin Exam: Positive: Nl turgor and temperature Neuro Exam: Positive: Normal Gait, Strength at 5/5 X4 ext, Sensation Intact Assessment /Plan Problems (1) Hypoxia Status: Acute Problem Text: Patient echocardiogram shows normal left ventricle ejection fraction of 65-70% and progress to diastolic dysfunction EQ scan done, report shows low probability of PE Chest x-ray shows improved left lower lobe atelectasis or infiltrates, no clinical evidence of pneumonia, no clinical evidence of PE Patient is only on 0.5 L of oxygen and will try to wean her off oxygen today Nursing staff was consulted and discussed regarding compliance with incentive his spirometry and possibly weaning her off oxygen, so that she can be discharged home (2) Hypertension Status: Chronic Problem Text: Diuretics and ROSA inhibitor on hold secondary to worsening renal function Nephrology consult has been called and awaiting official report Monitor BUN/creatinine (3) S/p nephrectomy Status: Acute Problem Text: Status post partial nephrectomy secondary to mass Plan/VTE VTE Prophylaxis Ordered?: Yes VTE Exclusion Mechanical Proph: N/A:VTE Prophy Ordered VS, I&O, 24H, Fishbone Vital Signs/I&O Vital Signs Date Time Temp Pulse Resp B/P (MAP) Pulse Ox O2 Delivery O2 Flow Rate FiO2 05/29/19 09:34 76 165/74 05/29/19 09:00 0.5 05/29/19 09:00 18 05/29/19 07:13 98 05/29/19 06:00 98.0 I&O- Last 24 Hours up to 6 AM 05/29/19 05:59 Intake Total 650 ml Output Total 1240 ml Balance -590 ml Laboratory Data 24H LABS Laboratory Tests 2 05/28/19 13:19: Bedside Glucose (Misc Panel) 145H 05/28/19 17:36: Bedside Glucose (Misc Panel) 176H 05/28/19 20:36: Bedside Glucose (Misc Panel) 126H 05/29/19 06:04: Nucleated Red Blood Cells % (auto) 0.0, Anion Gap 9, Glomerular Filtration Rate 24.2L, Blood Urea Nitrogen 43H, Creatinine 2.12H, Sodium Level 138, Potassium Level 3.3L, Chloride Level 99, Carbon Dioxide Level 30, Calcium Level 9.4 CBC/BMP Laboratory Tests 05/29/19 06:04 Red Blood Count 2.74 L, Mean Corpuscular Volume 90.1, Mean Corpuscular Hemoglobin 29.6, Mean Corpuscular Hemoglobin Concent 32.8, Red Cell Distribution Width 14.5, Calcium Level 9.4 BERNARDINO MCFADDEN MD May 29, 2019 11:27
[2019-05-29 14:00] VITALS: BP 163/72
[2019-05-29 16:00] VITALS: BP 163/72
--- NOTE | 2019-05-29 16:47 | IPNPDOC ---
Subjective Review oF Systems Chief Complaint The patient is a 73-year-old female admitted with a reason for visit of Renal Mass Left Upper Pole. Events since Last Encounter No acute events o/n. Pain well-controlled. Ambulating well. Tolerating diet. Passing flatus but no bm yet. Still having difficulty weaning off O2 w/ ambu lation. Patient denies SOB or chest pain. Objective Physical Examination General Exam: Alert, Cooperative, No Acute Distress Heart Exam: Positive: Rate Normal, Normal S1, Normal S2 ABDOMEN EXAM: Soft, Tenderness (mild), Other (incisions clean/dry/intact) Skin Exam: Nl turgor and temperature Neuro Exam: Normal Speech Psych Exam: Mental status NL, Mood NL Vital Signs/I&O Vital Signs Date Time Temp Pulse Resp B/P (MAP) Pulse Ox O2 Delivery O2 Flow Rate FiO2 05/29/19 14:00 97.7 74 18 163/72 (102) 96 0.5 I&O- Last 24 Hours up to 6 AM 05/29/19 06:00 Intake Total 500 ml Output Total 1110 ml Balance -610 ml Laboratory Data Labs 24H Laboratory Tests 2 05/28/19 17:36: Bedside Glucose (Misc Panel) 176H 05/28/19 20:36: Bedside Glucose (Misc Panel) 126H 05/29/19 06:04: Nucleated Red Blood Cells % (auto) 0.0, Anion Gap 9, Glomerular Filtration Rate 24.2L, Blood Urea Nitrogen 43H, Creatinine 2.12H, Sodium Level 138, Potassium Level 3.3L, Chloride Level 99, Carbon Dioxide Level 30, Calcium Level 9.4 05/29/19 12:19: Bedside Glucose (Misc Panel) 181H CBC/BMP Laboratory Tests 05/29/19 06:04 Red Blood Count 2.74 L, Mean Corpuscular Volume 90.1, Mean Corpuscular Hemoglobin 29.6, Mean Corpuscular Hemoglobin Concent 32.8, Red Cell Distribution Width 14.5, Calcium Level 9.4 FSBS Laboratory Tests Test 05/28/19 17:36 05/28/19 20:36 05/29/19 12:19 Range/Units Bedside Glucose (Misc Panel) 176 126 181 83-110 MG/DL Assessment/Plan Date Seen The patient was seen on 05/29/19. Patient Summary This is a 73 y/o F POD5 s/p L robotic partial nephrectomy. Her Cr is stable at 2. Hb is stable at 8.1. The hospitalist and nephrology services have been consulted for hypoxia and MACI, respectively. An echo and a VQ scan were both unremarkable. A repeat CXR was notable for improving infiltrate and atelectasis in the left lower lobe. Problems (1) Hypoxia Status: Acute (2) Hypertension Status: Chronic (3) S/p nephrectomy Status: Acute Plan/VTE VTE Prophylaxis Ordered?: Yes VTE Exclusion Mechanical Proph: N/A:VTE Prophy Ordered Plan - appreciate hospitalist recommendations and w/u for hypoxia - appreciate nephrology for following - cont to wean O2 as tolerated - ultram prn pain - SCDs when in bed - incentive spirometry - strict I/Os - regular diet DOROTHEA GONZALEZ MD May 29, 2019 16:47
[2019-05-29 18:00] VITALS: BP 163/72
--- NOTE | 2019-05-29 19:55 | CR ---
DATE OF CONSULTATION: 05/29/2019 NEPHROLOGY CONSULTATION FOR: Michel Thomason MD at the request of Junito Sommer MD. REASON FOR CONSULTATION: Acute renal failure and hypoxemia in this lady with partial nephrectomy. HISTORY OF PRESENT ILLNESS: Mrs. Levine is a 72-year-old female with known history of type 2 diabetes, hypertension, hyperlipidemia and coronary artery disease. She recently developed abdominal pain and during workup, she had a CT scan done and incidentally she was found to have a renal mass. She was seen by Dr. Thomason and underwent a partial left nephrectomy due to upper pole renal mass. Following her surgery, she has developed hypoxemia and requiring oxygen. She also has developed worsening kidney function, and a nephrology consultation was requested. The patient is seen this morning. PAST MEDICAL HISTORY: Significant for 1. Type 2 diabetes. 2. Hypertension. 3. Hyperlipidemia. 4. Chronic kidney disease. 5. Coronary artery disease. PAST SURGICAL HISTORY: Significant for bilateral cataract surgery, ovarian cyst removal, uterine fibroid removal, appendectomy, cholecystectomy, total hysterectomy, coronary artery stent placement and now partial left nephrectomy. MEDICATIONS: Her home medications include amlodipine 10 mg daily, vitamin C 500 mg daily, aspirin 81 mg daily, bisoprolol 10 mg daily, vitamin D 2000 units daily, Plavix 75 mg daily, Colace 100 mg twice a day, NovoLog insulin 10 units three times a day, Lantus insulin 40 units at bedtime, nitroglycerin as needed for chest pain, Effexor XR 37.5 mg twice a day and a multivitamin one tablet daily. She is also receiving Zofran 4 mg as needed for nausea and tramadol 50 mg as needed for severe pain. ALLERGIES: She has multiple allergies or intolerance to drugs including NIFEDIPINE, ATORVASTATIN, CRESTOR, FENTANYL, GLIPIZIDE, DIAZEPAM, HYDROMORPHONE, METFORMIN. PERSONAL AND SOCIAL HISTORY: The patient lives in [facility] [place] [place]. She does not smoke or drink. She lives alone. FAMILY HISTORY: Negative for end-stage renal disease or renal cancer. REVIEW OF SYSTEMS: She denies any fever or chills. Ears, nose and throat are unremarkable. Cardiovascular system negative for chest pain, but she does have history of dyspnea on exertion. Respiratory system is negative for cough or hemoptysis. Gastrointestinal (GI) system is significant for decreased appetite and nausea. She has had no bowel movement for a couple of days. Genitourinary () system is negative for dysuria or hematuria. She just had a partial left nephrectomy. Musculoskeletal system is negative for any significant lower extremity edema or arthritis. She does not usually use nonsteroidal anti-inflammatory drugs (NSAIDs). Psychosocial system is significant for depression. There is no history of anxiety. Neurological system is negative for seizures or stroke. Endocrine system is significant for type 2 diabetes and no problems with hypothyroidism. Hematological system is significant for anemia following her surgery. Skin is negative for rash or ulcers. PHYSICAL EXAMINATION: The patient is awake and alert, sitting at the edge of bed at the time of my visit this morning. She is using oxygen via nasal cannula. Temperature is 97.7 degrees Fahrenheit, heart rate 76 per minute and respiratory rate 16 per minute. Blood pressure 165/74 mmHg and oxygen saturation 96%. Head is atraumatic. Neck is supple and jugular venous distention (JVD) is mildly elevated. There is no oral thrush or ulcers. Pupils equal and reactive to light and sclera is anicteric. Heart sounds are regular and lungs with diminished breath sounds and bibasilar rales. Abdomen: Soft and nontender. Bowel sounds are present. Surgical incisions are all clean and intact. Extremities have no cyanosis or clubbing. Neurologically she is awake, alert and oriented times three. Skin has no rash or ulcers. LABORATORY DATA: On admission, her hemoglobin was 9.3 and hematocrit 29.5. Today her WBC count is 11.4, hemoglobin 8.1, hematocrit 24.7 and platelets are 224. Her admission chemistry showed a BUN of 22 and creatinine 1.55 on 05/24/2019. Sodium was 140 and potassium 4.2. Following surgery, on 05/25/2019, her creatinine went up to 1.94. On 05/26/2019 and 05/27/2019, creatinine stayed at 2.0, while on 05/28/2019 it went up to 2.12 and still 2.12 today. Her sodium is 138 and potassium is 3.3. CO2 is 30, glucose 194 and calcium 9.4. She had a VQ scan done today which was negative for pulmonary embolism. Chest x-ray showed bilateral atelectasis with possible small left pleural effusion. PROBLEMS: 1. Acute renal failure superimposed on chronic kidney disease. The patient has underlying chronic kidney disease with creatinine 1.55 at baseline prior to surgery. Probably she has diabetic nephropathy or hypertensive kidney disease, or a combination of. Following partial nephrectomy, her kidney function has declined. She has also developed some hypervolemia and has required diuresis. At this point, we will get a urinalysis and see if she has any significant proteinuria. Her renal function seems to be relatively stable, and we will continue to monitor while we are trying to diurese her. We can also get a bladder scan to rule out any possibility of urinary retention. 2. Hypoxemia. She probably has mild volume overload. Her chest x-ray does show small left pleural effusion. She is already getting incentive spirometry. Will try to diurese her gently and see how she does. She had hypokalemia this morning and has been taking a potassium supplement this morning, which is causing more nausea. We will try a dose of spironolactone 50 mg and then Lasix 40 mg intravenously one dose. We will monitor the response to diuretics and also we will monitor her oxygen level closely. 3. Acute kidney injury superimposed on chronic kidney disease. She seems to have underlying diabetic chronic kidney disease and was on angiotensin-converting enzyme (ROSA) inhibitor. I would recommend to hold her ROSA inhibitor for now while we are trying to diurese her. In fact, I am going to stop it for now, and we will resume once her condition with renal function stabilizes. She can continue with calcium channel yolanda and beta yolanda for now. 4. Hypertension. Blood pressure is slightly on the high side. We are going to try to diurese her, which will also help with her blood pressure. Her ROSA inhibitor is being stopped for now, and we will adjust her medications further as needed. Thank you for involving me in the care of Mrs. Levine. I will follow her along with you.
[2019-05-29] MEDS: ACETAMINOPHEN TAB 650MG DOSE (2X325MG) PO PRN (20:42)
[2019-05-29] MEDS: VENLAFAXINE **XR** 37.5 MG CAPSULE PO SCH (20:42)
[2019-05-29 22:00] VITALS: BP 164/71
[2019-05-29 22:58] LABS: APPEARANCE, URINE CLEAR (CLEAR); BACTERIA, URINE AUTO NEGATIVE (NEGATIVE); BILIRUBIN, URINE AUTO NEGATIVE (NEGATIVE); BLOOD, URINE BLOOD 1+ (NEGATIVE); COLOR, URINE YELLOW (YELLOW); GLUCOSE, URINE (UA) AUTO NEGATIVE (NEGATIVE); KETONE, URINE AUTO NEGATIVE (NEGATIVE); LEUKOCYTE ESTERASE, URINE AUTO NEGATIVE (NEGATIVE); MUCUS, URINE SMALL (NEGATIVE); NITRITE, URINE AUTO NEGATIVE (NEGATIVE); PROTEIN, URINE AUTO NEGATIVE (NEGATIVE); RBC, URINE AUTO 1 /HPF (0-3); SQUAMOUS EPITHELIAL CELL UR AU 1 /HPF (0-6); UROBILINOGEN, URINE AUTO 0.2 mg/dL (0.0-2.0); WBC, URINE AUTO 2 /HPF (0-3)
[2019-05-30 02:00] VITALS: BP 159/67
[2019-05-30] MEDS: ACETAMINOPHEN TAB 650MG DOSE (2X325MG) PO PRN ×2 (03:53→13:39)
[2019-05-30 06:00] VITALS: BP 152/65
[2019-05-30 06:41] LABS: BASO % 0.3 % (0.0-1.0); EOS # 0.2 10^3/uL (0.0-0.5); EOS % 2.1 % (0.0-3.0); HEMATOCRIT 25.7 % (36.0-47.0); HEMOGLOBIN 8.4 g/dl (12.0-15.5); LYMPH # 1.2 10^3/uL (1.5-5.0); LYMPH % 12.9 % (24.0-44.0); MEAN CORPUSCULAR HEMOGLOBIN 29.9 pg (27.0-33.0); MEAN CORPUSCULAR HGB CONC 32.7 g/dl (32.0-36.5); MEAN CORPUSCULAR VOLUME 91.5 fl (80.0-96.0); MONO # 1.2 10^3/uL (0.0-0.8); MONO % 12.7 % (0.0-5.0); NEUTROPHILS # 6.8 10^3/uL (1.5-8.5); NEUTROPHILS % 71.5 % (36.0-66.0); PLATELET COUNT, AUTOMATED 258 10^3/uL (150-450); RED BLOOD COUNT 2.81 10^6/uL (4.00-5.40); WHITE BLOOD COUNT 9.6 10^3/uL (4.0-10.0)
[2019-05-30 06:43] LABS: HEMATOCRIT 25.5 % (36.0-47.0); HEMOGLOBIN 8.3 g/dl (12.0-15.5); MEAN CORPUSCULAR HEMOGLOBIN 29.9 pg (27.0-33.0); MEAN CORPUSCULAR HGB CONC 32.5 g/dl (32.0-36.5); MEAN CORPUSCULAR VOLUME 91.7 fl (80.0-96.0); PLATELET COUNT, AUTOMATED 242 10^3/uL (150-450); RED BLOOD COUNT 2.78 10^6/uL (4.00-5.40); WHITE BLOOD COUNT 9.6 10^3/uL (4.0-10.0)
[2019-05-30 07:02] LABS: CALCIUM LEVEL 9.3 MG/DL (8.8-10.2); CREATININE FOR GFR 2.07 MG/DL (0.55-1.30); GLOMERULAR FILTRATION RATE 24.9 (>39); POTASSIUM SERUM 3.6 MEQ/L (3.5-5.1)
[2019-05-30 07:05] LABS: ALBUMIN 2.5 GM/DL (3.2-5.2); BILIRUBIN,TOTAL 0.6 MG/DL (0.2-1.0); CALCIUM LEVEL 9.3 MG/DL (8.8-10.2); CREATININE FOR GFR 2.13 MG/DL (0.55-1.30); POTASSIUM SERUM 3.5 MEQ/L (3.5-5.1); TOTAL PROTEIN 7.2 GM/DL (6.4-8.2)
--- NOTE | 2019-05-30 08:21 | IPNPDOC ---
Subjective Review oF Systems Chief Complaint The patient is a 73-year-old female admitted with a reason for visit of Renal Mass Left Upper Pole. Events since Last Encounter No acute events o/n. Pain controlled mainly w/ tylenol at this point. Tolerating diet. No n/v. Patient was up ambulating w/o O2 this morning and denied SOB. No f/c/ns. Objective Physical Examination General Exam: Alert, Cooperative, No Acute Distress ABDOMEN EXAM: Soft, Tenderness (minimal), Other (incisions clean/dry/intact) Skin Exam: Nl turgor and temperature Neuro Exam: Normal Speech Psych Exam: Mental status NL, Mood NL Vital Signs/I&O Vital Signs Date Time Temp Pulse Resp B/P (MAP) Pulse Ox O2 Delivery O2 Flow Rate FiO2 05/30/19 06:00 98.0 72 152/65 (94) 98 0.5 05/30/19 02:00 17 I&O- Last 24 Hours up to 6 AM 05/30/19 06:00 Intake Total 1070 ml Output Total 2450 ml Balance -1380 ml Laboratory Data Labs 24H Laboratory Tests 2 05/29/19 12:19: Bedside Glucose (Misc Panel) 181H 05/29/19 17:00: Bedside Glucose (Misc Panel) 116H 05/29/19 20:38: Bedside Glucose (Misc Panel) 182H 05/29/19 22:33: Urine Appearance CLEAR, Urine Color YELLOW, Urine pH 5.0, Urine Specific Gibson 1.010, Urine Protein NEGATIVE, Urine Glucose (UA) NEGATIVE, Urine Ketones NEGATIVE, Urine Urobilinogen 0.2, Urine Bilirubin NEGATIVE, Urine Leukocyte Esterase NEGATIVE, Urine Blood 1+H, Urine Nitrite NEGATIVE, Urine WBC (Auto) 2, Urine RBC (Auto) 1, Urine Hyaline Casts (Auto) 0, Urine Bacteria (Auto) NEGATIVE, Urine Squamous Epithelial Cells 1, Urine Mucus (Auto) SMALL, Urine Sperm (Auto) 05/30/19 06:00: Immature Granulocyte % (Auto) 0.5, White Blood Count 9.6, Red Blood Count 2.81L, Hemoglobin 8.4L, Hematocrit 25.7L, Mean Corpuscular Volume 91.5, Mean Corpuscular Hemoglobin 29.9, Mean Corpuscular Hemoglobin Concent 32.7, Red Cell Distribution Width 14.6H, Platelet Count 258, Neutrophils (%) (Auto) 71.5H, Lymphocytes (%) (Auto) 12.9L, Monocytes (%) (Auto) 12.7H, Eosinophils (%) (Auto) 2.1, Basophils (%) (Auto) 0.3, Neutrophils # (Auto) 6.8, Lymphocytes # (Auto) 1.2L, Monocytes # (Auto) 1.2H, Eosinophils # (Auto) 0.2, Basophils # (Auto) 0.0, Nucleated Red Blood Cells % (auto) 0.0, Anion Gap 9, Glomerular Filtration Rate 24.0L, Blood Urea Nitrogen 43H, Creatinine 2.13H, Sodium Level 137, Potassium Level 3.5, Chloride Level 97L, Carbon Dioxide Level 31, Calcium Level 9.3, Aspar gonzáles Amino Transf (AST/SGOT) 35, Alanine Aminotransferase (ALT/SGPT) 55, Alkaline Phosphatase 461H, Total Bilirubin 0.6, Total Protein 7.2, Albumin 2.5L, Albumin/Globulin Ratio 0.53L CBC/BMP Laboratory Tests 05/30/19 06:00 Red Blood Count 2.81 L, Mean Corpuscular Volume 91.5, Mean Corpuscular Hemoglobin 29.9, Mean Corpuscular Hemoglobin Concent 32.7, Red Cell Distribution Width 14.6 H, Neutrophils (%) (Auto) 71.5 H, Lymphocytes (%) (Auto) 12.9 L, Monocytes (%) (Auto) 12.7 H, Eosinophils (%) (Auto) 2.1, Basophils (%) (Auto) 0.3, Neutrophils # (Auto) 6.8, Lymphocytes # (Auto) 1.2 L, Monocytes # (Auto) 1.2 H, Eosinophils # (Auto) 0.2, Basophils # (Auto) 0.0, Calcium Level 9.3, Aspartate Amino Transf (AST/SGOT) 35, Alanine Aminotransferase (ALT/SGPT) 55, Alkaline Phosphatase 461 H, Total Bilirubin 0.6, Total Protein 7.2, Albumin 2.5 L FSBS Laboratory Tests Test 05/29/19 12:19 05/29/19 17:00 05/29/19 20:38 Range/Units Bedside Glucose (Misc Panel) 181 116 182 83-110 MG/DL Assessment/Plan Date Seen The patient was seen on 9/11/19. Patient Summary This is a 73 y/o F POD6 s/p left robotic partial nephrectomy. She feels well this am. Hb 8.4. Cr stable at 2.1. Good UOP. Patient was doing well off O2 this morning. Problems (1) Hypoxia Status: Acute (2) Hypertension Status: Chronic (3) S/p nephrectomy Status: Acute Plan/VTE VTE Prophylaxis Ordered?: Yes VTE Exclusion Mechanical Proph: N/A:VTE Prophy Ordered Plan - appreciate hospitalist input re hypoxia - will see if patient maintains sats off O2 and if so, likely OK for discharge - appreciate nephrology input regarding MACI in this patient w/ chronic renal insufficiency and BP control - cont tylenol or ultram as needed for pain - ambulate - SCDs when in bed - incentive spirometry - discharge home pending recs from hospitalist service and nephrology DOROTHEA GONZALEZ MD May 30, 2019 08:21
[2019-05-30] MEDS: DOCUSATE SODIUM 100 MG CAP PO SCH (09:03)
[2019-05-30] MEDS: hydroCHLOROthiazide 25 MG TAB PO SCH (09:03)
[2019-05-30] MEDS: HumaLOG INSULIN (NovoLOG) PER UNIT SC SCH ×2 (09:03→12:00)
[2019-05-30] MEDS: ASPIRIN 81 MG ENTERIC TAB PO SCH (09:03)
[2019-05-30] MEDS: amLODIPine 10 MG TAB PO SCH (09:03)
[2019-05-30] MEDS: POTASSIUM CHLORIDE 10 MEQ SR TABLET PO SCH (09:04)
[2019-05-30] MEDS: BISOPROLOL FUMARATE 10 MG TAB PO SCH (09:04)
--- NOTE | 2019-05-30 12:12 | IPN ---
DATE OF VISIT: 05/30/2019 Mrs. Levine is seen this morning on her bedside. She is laying in her bed in supine position. She is not short of breath and currently not using oxygen. Her oxygen saturation is up to 97% on room air. She reports that her oxygen has been off since 7:00 a.m. She does feel shaky when she dozes off. She denies any fever, chills, nausea, or vomiting. On physical exam, temperature 98.0 degrees Fahrenheit, heart rate 72 per minute, and respiratory rate 18 per minute. Blood pressure 152/65 mmHg and oxygen saturation 97% on room air. Head is atraumatic. Neck is supple and without jugular venous distention (JVD) or thyroid enlargement. Heart sounds are regular. Lungs with slightly diminished breath sounds at the bases. Abdomen is soft and bowel sounds are present. Surgical incisions are healing. Extremities without any cyanosis or clubbing. Neurologically, she is awake, alert and oriented times three. Today's labs show a WBC count 9.6, hemoglobin 8.4 and hematocrit 25.7. Platelets 258. Sodium 137, potassium 3.5, CO2 31, BUN 43, creatinine 2.13. Glucose 156. Calcium 9.3. PROBLEMS: 1. Acute renal failure superimposed on chronic kidney disease. Kidney function seems to be leveled off and electrolytes are stable. This is probably her new baseline kidney function. 2. Hypoxemia. Most likely it was related to volume status and has improved with diuresis. She is currently not on any oxygen and oxygenating at 97%. She will probably need maintenance diuretic at home. 3. Hypokalemia. This is related to diuresis and one dose of potassium chloride 20 mEq is being ordered. 4. Disposition. From a renal standpoint, the patient can be discharged to home today and followup with her primary remedial masseur, Dr. De Paz in [place] within one week. 5. Hypertension. Blood pressure reasonably well controlled. Her lisinopril has been stopped and she will continue with her amlodipine and bisoprolol. She is currently not on any maintenance diuretic, but is likely to require one. I will defer it to her primary physician and her primary remedial masseur.
--- NOTE | 2019-05-30 14:18 | DSES ---
DATE OF ADMISSION: 05/24/2019 DATE OF DISCHARGE: CONSULTANTS: Dr. Thomason, urologist. Dr. Medina, eight arm operator. PRIMARY DISCHARGE DIAGNOSES: 1. Renal cell carcinoma, grade 1, clear cell type, status post partial nephrectomy on 05/24/2019 with left robotic assisted laparoscopic partial nephrectomy with renal exploration and intraoperative ultrasonography for tumor mapping. 2. Uncontrolled hypertension. 3. Acute hypoxic respiratory failure requiring supplemental oxygen due to fluid overload. 4. Anemia of chronic disease. 5. Acute kidney injury on chronic kidney disease. 6. History of type 2 diabetes. 7. Hypertension. 8. Dyslipidemia. 9. Coronary artery disease on chronic aspirin and Plavix. DISCHARGE MEDICATIONS: - Colace 100 mg twice a day - Zofran 4 mg every 6 hours as needed for nausea - Tramadol 50 mg every 6 hours as needed for pain - Norvasc 10 mg daily - vitamin C 500 daily - aspirin 81 mg daily - vitamin D3 one capsule daily - Plavix 75 mg daily - NovoLog insulin 10 units subcutaneous three times a day - Lantus insulin 40 units subcutaneous at night - nitroglycerin as needed - venlafaxine 37.5 mg twice a day - vitamin B one tablet by mouth daily The patient is to stop the Lisinopril and hydrochlorothiazide due to worsening renal function. HOSPITAL COURSE: This is a 72-year-old female that was admitted under urological services for partial left nephrectomy due to upper pole renal mass, found to be a clear cell type renal cell carcinoma, grade 1, status post robotic assisted partial nephrectomy, developed respiratory distress and hypoxia, requiring supplemental oxygen. The hospitalist service was consulted for management. Nephrology, Dr. Medina, was consulted, who felt that this was fluid overload and responded well to Lasix and spironolactone. The patient diuresed 2.8 liters out on 05/25/2019 and was net negative at 1650 on 05/25/2019. She had been given Lasix and spironolactone with improvement and decrease in oxygen need, currently 98% on room air. The patient denied any dyspnea on exertion and has felt well with ambulation. She passed her home safety evaluation and subsequently discharged home. She remained anemic throughout her entire admission but denied any dizziness, lightheadedness, fatigue, generalized weakness and no blood transfusion was given. Evaluation of shortness of breath included a V/Q scan, which showed low probability of pulmonary embolus, as well as venous Dopplers of the lower extremities, which was negative for deep vein thrombosis (DVT). The patient is discharged in stable condition to followup with her eight arm operator in [place], as well as Dr. Thomason for postoperative management. LABORATORY DATA ON DISCHARGE: White count 9.6, hemoglobin 8.4, hematocrit 25, platelet count 258. Sodium 137, potassium 3.5, chloride 97, bicarbonate 31, BUN 43, creatinine 2.13, glucose of 156. IMAGING STUDIES: Venous Dopplers of 05/26/2019 negative for deep vein thrombosis (DVT). V/Q scan on 05/28/2019 low probability of pulmonary embolus. Chest x-ray on 05/26/2019 shows small layering effusion, bibasilar atelectasis. Repeat chest x-ray on 05/29/2019 showed atelectasis of left lower lobe, possible small left pleural effusion, coronary stent and loop recorder visualized. Time spent on discharge: 32 minutes. NAT
--- NOTE | 2019-05-31 09:57 | DSES ---
DATE OF ADMISSION: 05/24/2011 DATE OF DISCHARGE: 05/30/2019 ADMISSION DIAGNOSIS: Left renal neoplasm. DISCHARGE DIAGNOSIS: Left renal cell carcinoma, hypoxia. ADMITTING PHYSICIAN: Dr. Michel Thomason. DISCHARGE PHYSICIAN: Dr. Michel Thomason. PROCEDURES PERFORMED: Left robotic assisted laparoscopic partial nephrectomy on 05/24/2019. HISTORY OF PRESENT ILLNESS: This is a 73-year-old female who was found to have a 5.5 cm enhancing and exophytic left renal neoplasm. She was brought to the operating room on 05/24/2019 for surgery and was admitted to the hospital postoperatively. HOSPITALIZATION COURSE: The patient's postoperative course went fairly well. Of note throughout her hospital stay she had fairly good urine output. By postoperative day 1 her serum creatinine had gone up to 2 from about a baseline of 1.5. Her serum creatinine remained at about this level throughout her stay. Her hemoglobin level remained stable in the mid 8s. She had good urine output. We had difficultly weaning her off of supplemental oxygen during her hospital stay. Specifically with ambulation her oxygen saturation would drop to the low 80s on room air. The hospitalist service was consulted to help work this up. She had lower extremity Doppler's done as well as a V/Q scan and both were unremarkable. Chest x-rays were notable for a small pleural effusion and atelectasis and therefore she was diuresed. The nephrology service was also consulted given her bump in creatinine to 2 from baseline 1.5 and they adjusted some of her blood pressure medications. Ultimately by postoperative day 6 her oxygen saturation remained stable on room air. This appeared to improve as a result of diuresis as well as her being instructed to take deep and steady breaths. She was ultimately discharged home on postoperative day 6 in good condition. Her blood pressure medications were adjusted by the nephrology service. She will followup with urology service in approximately 3 weeks. She will also followup with her java web developer as an outpatient. NAT
== END 2019-05-30 14:35 | disposition home or self-care (01) | DRG 657 ==
LOC: M OR 05-24 06:23 → M MS5PR 05-24 14:28
PROVIDERS: ADMIT Urology; ATTEND Urology
PROC: 8E0W4CZ Robotic Assisted Procedure of Trunk Region, Percutaneous Endoscopic Approach (ICD-10-PCS; 2019-05-24)
PROC: 0TB14ZZ Excision of Left Kidney, Percutaneous Endoscopic Approach (ICD-10-PCS; principal; 2019-05-24 07:30)
DX: C64.2 Malignant neoplasm of left kidney, except renal pelvis (principal); J98.11 Atelectasis; N17.9 Acute kidney failure, unspecified; K56.7 Ileus, unspecified; E87.6 Hypokalemia; I12.9 Hypertensive chronic kidney disease with stage 1 through stage 4 chronic kidney disease, or unspecified chronic kidney disease; N18.9 Chronic kidney disease, unspecified; I25.10 Atherosclerotic heart disease of native coronary artery without angina pectoris; Z88.6 Allergy status to analgesic agent; E11.9 Type 2 diabetes mellitus without complications; E78.5 Hyperlipidemia, unspecified; Z79.899 Other long term (current) drug therapy; Z79.4 Long term (current) use of insulin

== ENCOUNTER → 2020-02-13 | Outpatient (CLI) | payer MEDICARE ==
[~2020-02-13] MED LIST changes: -BISO10TA10 PO; +BISO10TA14 PO; +COLA100C5 PO; +ONDA-83 PO; +TRAM50TA2 PO
--- NOTE | 2020-02-13 14:07 | REP ---
REASON: History of renal cell carcinoma on the left. COMPARISON: 04/03/2019, the only prior. The lack of intravenous contrast decreases the sensitivity of the exam. There are chronic lung base changes status quo. There are no pleural or pericardial effusions. Seen arising from the superior pole of the left kidney, there is an asymmetric mass density with peripheral calcifications. This has decreased in size and has developed calcifications since the last exam. Limited evaluation of the kidneys shows no new mass or abnormality. Limited noncontrast enhanced evaluation of the liver, spleen, pancreas, adrenal glands, show no gross abnormalities. Hepatic and splenic densities are again seen to be within normal limits. The nodule seen in the left adrenal gland is unchanged. There is some evidence of nodular thickening of the Zuckerkandl fascia on the left as this abuts the superior pole of the left kidney. No free fluid or free air is in the abdomen. The bowel loops are unremarkable in appearance. There is no evidence of periaortic adenopathy. No significant change in the appearance of the imaged osseous structures. IMPRESSION: 1. Left renal changes as described above. I have been given no history as to what type of procedure was performed on the left kidney that may, at least, in part be responsible for its appearance. Suffices to say the area in question is much smaller, irregular, and now seen with calcifications. Clinical correlation and further evaluation may be necessary. 2. Otherwise, no significant change from the prior exam with findings and exam limitations as described above. Electronically Signed by Yrn Worley DO 02/13/2020 02:24 P
== END ==
LOC: M RAD 12:08
PROVIDERS: ATTEND Urology
DX: C64.9 Malignant neoplasm of unspecified kidney, except renal pelvis (principal)